=== PATIENT | male | born 1955 | race Caucasian/White ===

== ENCOUNTER 2019-02-20 15:08 | Emergency (ER) | payer OTHER ==
[2019-02-20] MEDS ORDERED: NS 0.9% 1000 ML** 1,000 ML IV ONE (15:40)
[2019-02-20 15:47] LABS: ABS Eosinophils 0.1 10^3/ul (0-0.6); ABS Lymphocytes 1.8 10^3/ul (1.0-4.8); ABS Monocytes 0.7 10^3/ul (0-0.8); ABS Neutrophils 8.4 10^3/ul (1.5-7.7); Eosinophil % 0.5 %; Hematocrit 34 % (42-52); Hemoglobin 11.1 g/dL (14.0-18.0); Lymphocyte % 16.1 %; Mean Corpuscular HGB Conc 33 g/dL (31-36); Mean Corpuscular Hemoglobin 27 pg (27-31); Mean Corpuscular Volume 83 fL (80-94); Platelet Count 298 10^3/uL (150-450); Red Blood Count 4.07 10^6 /uL (4.18-5.48); Red Cell Distribution Width 18 % (10-15)
--- NOTE | 2019-02-20 15:54 | ED ---
Syncope/Near Syncope - HPI Summary HPI Summary: Patient is a 63 y/o M presenting to the ED for a chief complaint of syncope. Patient is present with family. Patient is visiting family in [place] and traveled from [place] by airplane on the morning of 02/15/19. Per EMS, patient was on a wine tour and had 2 syncopal episodes, the second while in a standing position. Patient states the first syncopal episode occurred after stepping out of a car. Patient also complains of shoulder pain and lightheadedness. Patient denies nausea, vomiting, bilateral LE pain or swelling , rectal bleeding, CP, SOB, or cough. Patient recently increased the dosage for two HTN medications 2-3 weeks ago. Patient admits that he drank a wine slushie on 02/20/19. Patient denies any tobacco or drug use. Patient has a PMHx of HLD, HTN, and DVT 3 years ago. Patient has a PSHx of triple hernia surgery, gastric bypass, cholecystectomy, bilateral shoulder surgery, and groin surgery 2 months ago. Patient is not currently taking any blood thinners. Allergies noted. Medications reviewed. - History Of Current Complaint Chief Complaint: EDSyncope Time Seen by Provider: 02/20/19 15:19 Hx Obtained From: Patient, EMS Onset/Duration: Sudden Onset, Resolved Timing: Minutes Context: Loss Of Consciousness Activity At Onset: Other - Getting out of a car Associated Head Trauma: No Aggravating Factor(s): Nothing Alleviating Factor(s): Spontaneous Resolution Associated Signs And Symptoms: Negative - Allergies/Home Medications Allergies/Adverse Reactions: Allergies Allergy/AdvReac Type Severity Reaction Status Date / Time acetaminophen [From Percocet] Allergy Itching Verified 02/20/19 15:23 oxycodone [From Percocet] Allergy Itching Verified 02/20/19 15:23 Home Medications: Home Medications AZILsartan (NF) [Edarbi (NF)] 40 mg PO DAILY 02/20/19 [History Confirmed ] Aerospan Hfa Inhaler 80mcg 80mcg 1 puff INH DAILY 02/20/19 [History Confirmed ] Ascorbic Acid TAB* [Vitamin C TAB*] 1,000 mg PO DAILY 02/20/19 [History Confirmed 02/20/19] Aspirin EC TAB* [Ecotrin EC Low Dose 81 MG*] 81 mg PO DAILY 02/20/19 [History Confirmed 02/20/19] Cholecalciferol CAP/TAB(NF) [Vitamin D3 CAP/TAB (NF)] 1,000 unit PO DAILY [History Confirmed 02/20/19] Cyanocobalamin TAB* [Vitamin B12 TAB*] 2,500 mcg PO DAILY 02/20/19 [History Confirmed 02/20/19] Esomeprazole(NF) [NEXium(NF)] 40 mg PO DAILY 02/20/19 [History Confirmed ] Esomeprazole(NF) [NexIUM(NF)] 40 mg PO DAILY 02/20/19 [History Confirmed ] Ezetimibe TAB* [Zetia TAB*] 10 mg PO DAILY 02/20/19 [History Confirmed 02/20/19] Fenofibrate Acid(NF) (Choline) [Trilipix(NF)] 135 mg PO DAILY 02/20/19 [History Confirmed 02/20/19] Fexofenadine (NF) [Charley 180 (NF)] 180 mg PO DAILY 02/20/19 [History Confirmed 02/20/19] Fluticasone NASAL SPRAY 50MCG* [Flonase NASAL SPRAY 50MCG*] 1 spray BOTH NARES DAILY 02/20/19 [History Confirmed 02/20/19] Icosapent Ethyl [Vascepa] 2 gm PO BID 02/20/19 [History Confirmed 02/20/19] Metformin HCl [Metformin HCl ER] 500 mg PO QPM 02/20/19 [History Confirmed 02/20] Montelukast Sodium TAB* [Singulair TAB*] 10 mg PO QPM 02/20/19 [History Confirmed 02/20/19] Montelukast Sodium TAB* [Singulair TAB*] 10 mg PO QPM 02/20/19 [History Confirmed 02/20/19] Bruno-3 Fatty Acids (Nf) [Fish Oil (NF)] 1,200 mg PO DAILY 02/20/19 [History Confirmed 02/20/19] Pitavastatin (NF) [Livalo (NF)] 4 mg PO DAILY 02/20/19 [History Confirmed ] Ranitidine TAB (NF) [Zantac TAB (NF)] 150 mg PO BID 02/20/19 [History Confirmed 02/20/19] Sildenafil (NF) [Viagra (NF)] 100 mg PO DAILY PRN 02/20/19 [History Confirmed ] Tamsulosin CAP* [Flomax CAP*] 0.4 mg PO DAILY 02/20/19 [History Confirmed ] Ubidecarenone [Coq10 Gummies Adult] 100 mg PO DAILY 02/20/19 [History Confirmed 02/20/19] PMH/Surg Hx/FS Hx/Imm Hx Previously Healthy: Yes Endocrine/Hematology History: Denies: Hx Diabetes Cardiovascular History: Reports: Hx Deep Vein Thrombosis - 3 years ago, Hx Hypercholesterolemia, Hx Hypertension Sensory History: Denies: Hx Legally Blind, Hx Deafness Opthamlomology History: Denies: Hx Legally Blind EENT History: Denies: Hx Deafness - Surgical History Surgical History: Yes Surgery Procedure, Year, and Place: Triple hernia, gastric bypass, cholecystectomy, bilateral shoulder, groin Infectious Disease History: No Infectious Disease History: Denies: Traveled Outside the [place] in Last 30 Days - Family History Known Family History: Negative: Hypertension, Diabetes - Social History Occupation: Retired Lives: With Family Alcohol Use: Occasionally Hx Substance Use: No Substance Use Type: Reports: None Hx Tobacco Use: No Smoking Status (MU): Never Smoked Tobacco Review of Systems Negative: Chest Pain Negative: Shortness Of Breath, Cough Positive: Other - Negative rectal bleeding. Negative: Vomiting, Nausea Positive: Arthralgia - Shoulder pain. Negative: Myalgia - Bilateral LE, Edema - Bilateral LE Neurological: Other - Positive lightheadedness Positive: Syncope All Other Systems Reviewed And Are Negative: Yes Physical Exam - Summary Physical Exam Summary: Constitutional: Well-developed, Well-nourished, Alert. (-) Distressed Skin: Warm, Dry HENT: Normocephalic; Atraumatic Eyes: Conjunctiva normal Neck: Musculoskeletal ROM normal neck. (-) JVD, (-) Stridor, (-) Tracheal deviation Cardio: Rhythm regular, rate normal, Heart sounds normal; Intact distal pulses; Radial pulses are 2+ and symmetric. (-) Murmur Pulmonary/Chest wall: Effort normal. (-) Respiratory distress, (-) Wheezes, (-) Rales Abd: Soft, (-) tenderness, (-) Distension, (-) Guarding, (-) Rebound Musculoskeletal: (-) Edema Lymph: (-) Cervical adenopathy Neuro: Alert, Oriented x3 Psych: Mood and affect Normal Triage Information Reviewed: Yes Vital Signs On Initial Exam: Initial Vitals Temp Pulse Resp BP Pulse Ox 98.4 F 83 16 100/56 97 02/20/19 15:10 02/20/19 15:10 02/20/19 15:10 02/20/19 15:10 02/20/19 15:10 Vital Signs Reviewed: Yes Procedures - Sedation Patient Received Moderate/Deep Sedation with Procedure: No Diagnostics - Vital Signs Vital Signs Temp Pulse Resp BP Pulse Ox 02/20/19 15:24 82 50 87/50 94 02/20/19 15:23 85 97 02/20/19 15:10 98.4 F 83 16 100/56 97 - Laboratory Lab Results: Lab Results 02/20/19 Range/Units 15:35 WBC 11.0 H (3.5-10.8) 10^3/uL RBC 4.07 L (4.18-5.48) 10^6 /uL Hgb 11.1 L (14.0-18.0) g/dL Hct 34 L (42-52) % MCV 83 (80-94) fL MCH 27 (27-31) pg MCHC 33 (31-36) g/dL RDW 18 H (10-15) % Plt Count 298 (150-450) 10^3/uL MPV 7.0 L (7.4-10.4) fL Neut % (Auto) 76.4 % Lymph % (Auto) 16.1 % [place] % (Auto) 6.8 % Eos % (Auto) 0.5 % Baso % (Auto) 0.2 % Absolute Neuts (auto) 8.4 H (1.5-7.7) 10^3/ul Absolute Lymphs (auto) 1.8 (1.0-4.8) 10^3/ul Absolute Monos (auto) 0.7 (0-0.8) 10^3/ul Absolute Eos (auto) 0.1 (0-0.6) 10^3/ul Absolute Basos (auto) 0.0 (0-0.2) 10^3/ul Absolute Nucleated RBC 0.0 10^3/ul Nucleated RBC % 0.0 Result Diagrams: 02/20/19 15:35 02/20/19 15:35 Lab Statement: Any lab studies that have been ordered have been reviewed, and results considered in the medical decision making process. - EKG 15:28 Cardiac Rate: NL - 82 BPM EKG Rhythm: Sinus Rhythm Ectopy: None Summary of EKG Findings: EKG at 15:28 reveals 82 BPM with normal sinus rhythm and artifacts present. Reviewed and interpreted by ED physician. 15:55 Cardiac Rate: NL - 83 BPM EKG Rhythm: Sinus Rhythm ST Segment: Normal Ectopy: None Summary of EKG Findings: EKG at 15:55 reveals 83 BPM with normal sinus rhythm, no abnormalities. Reviewed and interpreted by ED physician. Course/Dx Course Of Treatment: Patient is here with 2 syncopal episodes. Patient was initially hypotensive with EMS which improved here with IV fluid administration. Patient was not orthostatic on vital signs after resuscitation. Patient had an EKG showed no evidence of arrhythmia. Patient had blood work which was grossly unremarkable outside of elevated creatinine. Patient was offered admission but declined. Patient was encouraged to return if he had any worsening symptoms. Patient was also told to not take his blood pressure medication until being cleared by his primary care doctor. - Diagnoses Provider Diagnoses: Syncope Discharge ED - Sign-Out/Discharge Documenting (check all that apply): Patient Departure - Discharge - Discharge Plan Condition: Stable Disposition: HOME Patient Education Materials: Syncope (ED) Referrals: [facility] [Outside] Additional Instructions: Call your primary care provider tomorrow to see if you should resume your blood pressure medications. Do not take until your blood pressure medications until directed by your primary care provider. Return to the Emergency Department if you faint, have chest pain, or have trouble breathing. - Billing Disposition and Condition Condition: STABLE Disposition: Home - Attestation Statements Document Initiated by Scribe: Yes Documenting Scribe: Angela Mota Provider For Whom Angella is Documenting (Include Credential): Moris Damon MD Scribe Attestation: Angela Todd, scribed for Moris Damon MD on 02/20/19 at 2128. Scribe Documentation Reviewed: Yes Provider Attestation: The documentation as recorded by the Angela garcia accurately reflects the service I personally performed and the decisions made by me, Moris Damon MD Status of Scribe Document: Viewed
[2019-02-20 16:06] LABS: INR 0.97 (0.82-1.09)
[2019-02-20 16:13] LABS: Albumin 3.5 g/dL (3.2-5.2); Albumin/Globulin Ratio 1.3 (1-3); BUN/Creatinine Ratio 17.9 (8-20); Calcium 8.7 mg/dL (8.6-10.3); EGFR Non-African American 30.6 (>60); Globulin 2.6 g/dL (2-4); Potassium 4.9 mmol/L (3.5-5.0); Total Bilirubin 0.3 mg/dL (0.2-1.0); Total Protein 6.1 g/dL (6.4-8.9)
[2019-02-20 16:56] VITALS: BP 118/59
== END 2019-02-20 17:05 | disposition home or self-care (01) ==
LOC: ED 15:08
DX: R55 Syncope and collapse (principal); E78.5 Hyperlipidemia, unspecified; I10 Essential (primary) hypertension; Z86.718 Personal history of other venous thrombosis and embolism; Z98.84 Bariatric surgery status; Z90.49 Acquired absence of other specified parts of digestive tract; Z88.6 Allergy status to analgesic agent; Z88.5 Allergy status to narcotic agent; Z79.82 Long term (current) use of aspirin; Z79.84 Long term (current) use of oral hypoglycemic drugs; Z79.899 Other long term (current) drug therapy
CPT/HCPCS: 36415; 80053; 83880; 84484; 85025; 85379; 85610; 93005; 96360; 99284